=== PATIENT | female | born 1965 | race Caucasian/White ===

== ENCOUNTER → 2019-07-07 08:31 | Outpatient (CLI) | payer BC, SELFPAY ==
--- NOTE | 2019-07-07 08:33 | BI_ITS ---
MAMMOGRAPHY - BILATERAL SCREENING REASON FOR EXAM: Female, 54 years old. Routine annual screening examination. PERTINENT HISTORY: Aunt with breast cancer. TECHNIQUE: Digital bilateral breast brent (3D mammographic acquisition) in the CC and MLO projections. 2-D mediolateral oblique (MLO) and craniocaudad (CC) views of both breasts were obtained. CAD: Full Field Digital Mammography with Computer Added Detection was performed. COMPARISON: Comparison is made with prior examination dated September 26, 2014. FINDINGS: Breast Composition: The breasts are heterogeneously dense, which may obscure small masses. There are no dominant masses or suspicious calcifications. Stable appearance of the small bilateral axillary lymph nodes. No other significant abnormalities are identified. There has been no significant change since the prior study. BI/SCREEN MAMM (CAD) W/BRENT BILAT IMPRESSION: Stable bilateral screening mammogram. Yearly follow-up mammogram recommended. (A) ASSESSMENT CATEGORY: BIRADS Category 2: Benign. A letter regarding these results will be sent to the patient by the facility within 30 days. Approximately 10% of breast cancers are not detected by mammography. A normal mammogram should not delay biopsy of a clinically suspicious abnormality. [id number] Electronically Signed: Jonnathan Harris, at 9:39 EDT , Service support ,
== END ==
PROVIDERS: Family Provider Internal Medicine; PCP Internal Medicine; Referring Provider Internal Medicine; Visit Provider Internal Medicine
DX: Z12.31 Encounter for screening mammogram for malignant neoplasm of breast (principal)
CPT/HCPCS: 77063; 77067

== ENCOUNTER → 2019-07-25 15:54 | Outpatient (CLI) | payer BC, SELFPAY | PROVIDERS: Visit Provider Obstetrics & Gynecology | DX: Z12.4 Encounter for screening for malignant neoplasm of cervix (principal) ==

== ENCOUNTER → 2020-03-29 | Outpatient (CLI) | payer BC, SELFPAY ==
--- NOTE | 2020-03-29 13:45 | EMB_PTH ---
PATIENT: BENIGNO CORNEJO LOC: [facility] U#:[id number] AGE/SX: 54/F ROOM: RE03/29/[address]: Dr. Eliot Thompson MD : 1965 BED: DIS: 03/29/2020 SPEC #: [id number] RECD: 03/29/20 15:06 STATUS: NATALY CHRISTIENabor #: [id number] ROXANA: 03/29/20 13:[address]: Eliot Thompson DEPT: SURGICAL PATHOLOGY RECD BY: Collins Rosario Tissues: Endometrium, NOS Procedures: Surgery Specimen Level IV HEADER OPERATION: Endometrial biopsy PRE-OP DIAGNOSIS: N93.9 TISSUE SUBMITTED: Endometrial biopsy MICROSCOPIC DIAGNOSIS Endometrium, biopsy: Simple hyperplasia without atypia. AM:jerry 04/03/20 COMMENT Case has been reviewed in consultation with Dr. Coates who concurs with the above diagnosis. IDC:SJ MICROSCOPIC DESCRIPTION Slides are reviewed. GROSS DESCRIPTION Received in fixative is one container labeled with the patient's name and designated endometrial biopsy. The specimen consists of multiple irregular fragments of dark espino soft tissue that in aggregate measure 2.5 x 2 x 0.2 cm. The specimen is totally submitted in one cassette. / AM:jerry 04/02/20 TC:5 CPT: 05159
[2020-03-29 16:23] LABS: Hemoglobin 7.1 g/dL (12.0-15.0)
[2020-04-02 14:07] LABS: Free T3 0.8 pg/mL (2.18-3.98); T4 Free Direct 0.23 ng/dL (0.76-1.46)
== END | disposition home or self-care (01) ==
PROVIDERS: Visit Provider Obstetrics & Gynecology
DX: N93.9 Abnormal uterine and vaginal bleeding, unspecified (principal); R94.6 Abnormal results of thyroid function studies
CPT/HCPCS: 84439; 84443; 84481; 85014; 85018; 88305

== ENCOUNTER 2020-05-20 05:35 | Day surgery (SDC) | payer BC, SELFPAY ==
--- NOTE | 2020-05-15 10:55 | EKG12_ITS ---
Test Reason : PRE-OP Blood Pressure : / mmHG Vent. Rate : 062 BPM Atrial Rate : 062 BPM P-R Int : 138 ms QRS Dur : 092 ms QT Int : 380 ms P-R-T Axes : 022 049 042 degrees QTc Int : 385 ms Sinus rhythm with marked sinus arrhythmia Otherwise normal ECG Confirmed by GOMEZ RUIZ ([id number]), restaurant expeditor GAVIOTA PINK ([id number]) on 05/16/2020 1:08:58 PM Referred By: Eilot Thompson Confirmed By:GOMEZ RUIZ
[2020-05-15 11:58] LABS: Hematocrit 38.5 % (37-47); Hemoglobin 11.3 g/dL (12.0-15.0); Mean Corp Hgb Conc 29.4 g/dL (32-36); Mean Corpuscular Hgb 27.5 pg (27.0-32.0); Mean Corpuscular Volume 93.7 fL (81-99); Mean Platelet Vol. 11.7 fl (6.2-12.0); POSITIVE MORPHOLOGY YES; Platelet Count 361 K/mm3 (150-450); RBC Distribution Width CV 20.3 % (11.6-14.6); RBC Distribution Width SD 68.6 fl (35.1-43.9); Red Blood Count 4.11 M/mm3 (4.2-5.4); White Blood Count 5.4 K/mm3 (4.4-11.0)
[2020-05-15 12:05] LABS: Partial Thromboplast Time 27.4 Seconds (24.1-36.2); Prothrombin Time (Protime)PT. 12.4 SECONDS (11.7-14.9)
[2020-05-15 12:26] LABS: AST(SGOT) 26 U/L (15-37); Alanine Aminotransfer ALT/SGPT 33 U/L (13-56); Albumin, Serum 3.9 g/dL (3.2-5.0); Alkaline Phosphatase 23 U/L (45-117); Anion Gap 6 (5-15); BUN 11 mg/dL (7-18); BUN/Creat Ratio 10.9 RATIO (10-20); Calcium,Total 8.6 mg/dL (8.5-10.1); Chloride 107 mmol/L (98-107); Creatinine, Serum 1.01 mg/dL (0.55-1.02); EST Glomerular Filtration Rate 61 mL/min (>60); Est Glom Filt Rate - Afr Amer 74 mL/min (>60); Globulin 3.8 g/dL (2.2-4.2); Glucose 82 mg/dL (74-106); Potassium 4.3 mmol/L (3.5-5.1); Protein, Total 7.7 g/dL (6.4-8.2); Sodium Level 138 mmol/L (136-145); Thyroid Stim Hormone (TSH) 0.27 uIU/mL (0.358-3.74)
[2020-05-15 12:34] LABS: Scan Indicated on CBC? Y/N YES- FLAGS NOTED
[2020-05-15 12:35] LABS: Differential Comment SCANNED
--- NOTE | 2020-05-19 21:25 | HP.PCM_ITS ---
History and Physical Date of Admission: 05/20/20 Surgical History and Physical Jackie Royal, a 54 year old female 3 0 0 0 3, presents for RAVH/BSO on May 20, 2020 at 7:30. -- Menorrhagia; Submucous Fibroids; Blood Loss Anemia -- Pt has heavy bleeding and clotting. Pt states she skips 2-3 months and then will have a heavy bleeding. She will go through a large pad about every 2 hours. Heavy menses claims it started gradually; It occurs all the time. It is located in the vagina. Jackie characterizes the quality heavy. Associated signs and symptoms are dysmenorrhea. Additional comments are: u/s shows submucous fibroids and thickened endometrium; EMBx benign but showed simple hyperplasia. MEDICATIONS HISTORY: Current medications prescribed by our practice are: 1. Aygestin 5 mg tablet, 2 tabs by mouth every 2 hrs until bleeding stops, no more than 12 in 24 hours, then 2 tabs 3 x per day x 3 days, then 2 tabs 2 x per day x 3 days Patient is also takin. Synthroid 150 mcg tablet, One pill by mouth once a day ALLERGIES: NKA Infections - No Chicken pox Illnesses - hypothyroid Accidents - no injuries of consequence Hospitalizations - Childbirth colonscopy 2019; Review of Systems: GENERAL - Denies fever, or chills SKIN - Denies skin changes EYES - Denies visual changes EARS - Denies difficulty hearing NOSE - Denies nasal congestion or bleeding MOUTH - Denies sore throat or difficulty swallowing NECK - Denies pain or swelling RESPIRATORY - Denies shortness of breath or wheezing CARDIOVASCULAR - Denies palpitations or chest pain GASTROINTESTINAL - Denies nausea, vomiting, diarrhea, constipation GENITOURINARY - Denies dysuria, frequency of urination, incontinence of urine MUSCULOSKELETAL - Denies joint or muscle pain NEUROLOGICAL - Denies localized numbness or weakness PSYCHIATRIC - Denies depression or anxiety ENDOCRINE - Denies heat or cold intolerance, weight loss or gain HEMATO-IMMUNOLOGIC - Denies excesive bleeding with cuts SOCIAL HISTORY: Alcohol Use - socially Smoking - denies smoking Diet - balanced Diet Lifestyle - moderate stress lifestyle and Exercise - regular Seat Belt Use - always 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 Mother: Uterine cancer. Maternal Aunt: Breast cancer. MENSTRUAL HISTORY: LMP Known?- DefiniteAmount/Duration - 7 days, Regularity - Irregular, Frequency - variable days, LMP - 05/13/20, Age Onset Menarche - 13 PAST PREGNANCIES: Total Pregnancies - 3; Full Term Pregnancies - 3; Premature - 0; Abortions, Induced - 0; Abortions, Spontaneous - 0; Ectopics - 0; Multiple Births - 0; Living Children - 3 SURGICAL HISTORY: 1. varicose veins ' 04 ; Dr Lyons 2. colonoscopy 2019 PHYSICAL EXAM BP- 126/82 Sitting, Right arm, regular cuff Weight- 195 lbs Height- 66.5 inch BMI:31.07 CONSTITUTIONAL - NAD, well nourished, and well developed NEUROLOGICAL - Cranial nerves II-XII grossly intact PSYCHIATRIC - A and O to time, place, person, mood and affect External Genitial Vagina - non-tender without lesions Urethra/Urethral Meatus - non-tender Bladder - non-tender Vagina - vaginal landry are pink and moist without loss of rugae and no evidence of atropy and blood in vagina Cervix - without cervical motion tenderness and has normal size and features without evident lesions and high in vagina which would make LAVH technically difficult Uterus - multiparous size 6 cm & wt 75-125 g Adnexa - clear without massess or tenderness ASSESSMENT/PLAN: 1. Iron Deficiency Anemia Secondary To Blood Loss (chronic), Premenopause Menorrhagia, Submucous Leiomyoma and Simple Endometrial Hyperplasia Discussed options for treatment including medical versus surgical management. Given that medical management and minor surgical management such as D and C will likely not help sufficiently with this problem pt wants to proceed with hysterectomy. Plan to proceed with RAVH/BSO. Discussed RBAs and all questions answered.
[2020-05-20] VITALS (11 sets, daily range): BP systolic 103–126; BP diastolic 50–74; PULSE 60–83; RESP 12–18; TEMP 35.9–36.8; O2SAT 91–100; BMI 31.2
[2020-05-20 06:24] LABS: Internal QC Validated? YES +Cl - CLEAR BKGD; Pregnancy, Urine Negative Negative
[2020-05-20] MEDS: Lactated Ringers 1,000 ML 100 ML IV ×2 (06:35→06:45)
--- NOTE | 2020-05-20 07:30 | HYST_PTH ---
PATIENT: BENIGNO CORNEJO LOC: [facility] [place] U#:[id number] AGE/SX: 54/F ROOM: RE05/20/[address]: Dr. Eliot Thompson MD : 1965 BED: DIS: 05/21/2020 SPEC #: [id number] RECD: 05/20/20 10:21 STATUS: NATALY CHRISTIENabor #: [id number] ROXANA: 05/20/20 07:[address]: Eliot Thompson DEPT: SURGICAL PATHOLOGY RECD BY: Aminata Alonzo ENTERED: 05/20/20 10:38 SP TYPE: HYSTERECT OTHR DR: Dr. Bianca Rivera, DO Tissues: Uterus, NOS Procedures: Surgery Specimen Level V HEADER OPERATION: Lap robotic hysterectomy, BSO PRE-OP DIAGNOSIS: Iron deficiency anemia secondary to blood loss, premenopause menorrhagia, submucous leiomyoma, simple endometrial hyperplasia TISSUE SUBMITTED: Uterus, cervix, bilateral fallopian tubes and ovaries MICROSCOPIC DIAGNOSIS Uterus, hysterectomy: Cervix - nabothian cysts and mild chronic inflammation. Endometrium - transition endometrium. Myometrium - leiomyomas and adenomyosis. Right and left ovaries - involutional cysts. Right and left fallopian tubes - no pathologic change. AM:jerry 05/21/20 MICROSCOPIC DESCRIPTION Slides are reviewed. GROSS DESCRIPTION Received in fixative is one container labeled with the patient's name and designated uterus. The specimen consists of a uterus with attached right and left fallopian tubes and ovaries and attached cervix. The uterus with cervix measures 8 x 7 x 5.5 cm and weighs 170 gm. The ectocervix is grossly unremarkable. The endocervical canal measures 3.8 cm in length and is grossly unremarkable. The triangular endometrial cavity measures 4.5 x 4 cm. The endometrium is light espino, velvety and glistening and measures up to 0.2 cm in thickness. The myometrium measures 2.5 cm in average thickness and contains multiple spherical rubbery nodules ranging in size from 0.5 to 2 cm. The nodules and cut surfaces display a whorled appearance without areas of cyst formation, necrosis or hemorrhage. The right and left ovaries are pink-espino, smooth and glistening with crinkled external surfaces. The right ovary measures 2.5 x 1.5 x 1 cm. The left ovary measures 2.6 x 1.5 x 1 cm. Serial sections of the ovaries do not reveal mass lessons. Mva Reactor Operator Head sections are submitted in 11 cassettes as follows: 1 - anterior cervix, 2 - posterior cervix, 3 - anterior endometrium/myometrium, 4 & 5 - remainder of anterior endometrium, 6 - posterior endometrium/myometrium, 7 & 8 - remainder of posterior endometrium, 9??myometrial masses, 10 - right fallopian tube and ovary, 11 - left fallopian tube and ovary. / AM:jerry 05/20/20 TC:1 CPT: 22882
--- NOTE | 2020-05-20 07:40 | OP.PCM_ITS ---
Report of Operation Date of Procedure: 05/20/20 Pre-Operative Diagnosis: Menorrhagia; Submucous Fibroids; Blood Loss Anemia, Simple Endometrial Hyperplasia Post-Operative Diagnosis: Menorrhagia; Submucous Fibroids; Blood Loss Anemia, Simple Endometrial Hyperplasia Surgery/Procedure Performed:: Robotic Assisted Vaginal Hysterectomy and Bilateral Salpingo-Oophorectomy Description of Surgical Findings:: 12 cm uterus with normal-appearing fallopian tubes and ovaries. carpet inspector: Vamshi Turner Type of Anesthesia:: General - Endotracheal Anesthesiologist: Reno Arevalo Specimen's removed: Uterus and bilateral fallopian tubes and ovaries Drains: Crystal to straight drain Estimated Blood Loss (mL): Minimal Fluids Replaced: Crystalloid Description of Procedure: Surgeon: Eliot Thompson MD, FACOG Indication: This is a 54 year old patient who has been having problems with menorrhagia, submucous fibroids, blood loss anemia, and simple endometrial hyperplasia. Conservative measures have not been helpful. The patient has been counseled regarding the risks, benefits and alternatives of this procedure including the possibility of bleeding, infection, and injury to surrounding structures such as bowel bladder and all questions were answered. She understands that if BSO is done that she will need to be on HRT for an indefinite period of time. Procedure: Pt taken to the operating room where, after induction of general anesthesia, the patient was prepped and draped in the usual sterile fashion and placed on a non-slip Huggy-u-vac device. Trendelenburg test was satisfactory. Bladder was drained of urine with a Crystla catheter which was left in place. Anterior cervix grasped and cervix was dilated to about 3-4 mm. Uterus sounded to 11 cms. 0-Vicryl suture was placed at the 3:00 and 9:00 position of the cervix. A small Advincula Morgue Technician Uterine Manipulator was then placed in the uterus and attention was turned to the laparoscopic portion of the procedure. Ropivocaine 0.5% was injected approximately 2-3 cm superior to the umbilicus and an 8 mm robotic camera port was introduced directly with intraperitoneal placement confirmed with CO2 insufflation. 8 mm robotic side ports were introduced under direct visualization approximately 11 cm lateral and 2 cm inferior to the umbilical port. A 5 mm left upper quadrant port was introduced and airseal insufflation with CO2 was started. The above findings were noted. Robot was docked without difficulty and attention turned to the robotic portion of the procedure. Approximately 30 cc of Ropivicaine was used. Bilateral infundibulopelvic ligaments were ligated with 45 ramsey bipolar coagulation to the level of the round ligament. The posterior aspect of the cervix was identified and then opened for about 1 cm using 25 watt monopolar cautery identifying the uterine manipulating device which had been placed vaginally. Bladder flap was opened and divided to the level of the round ligaments using monopolar cautery. Progressive bites were then ligated on each side of the cervix with 35 ramsey bipolar cautery to the uterine arteries. The anterior vaginal mucosa was entered and cervix circumscribed with monopolar cautery. Uterus and attached tubes and ovaries were removed through the vagina. Vaginal cuff was closed first with 0-Vicryl Beverly stitches placed at each angle followed by closure of the mid-cuff with 0-Monocryl V-lock suture in two layers. Pelvis was copiously irrigated with saline and the right ureter was noted to peristalse. Robot was undocked and trocars were removed with as much gas as possible. Incisions were closed with 4-0 Monocryl subcuticular sutures and incisions covered with steri-strips. The patient tolerated the procedure well and was taken to the recovery room in satisfactory condition. Sponge, instruments and needle counts were all correct. There were no apparent complications of the surgery. Cefotan 2 gms IV was given prior to the procedure. Grafts/Implants Used: None - Complications None - Admit VTE Documentation VTE Present on Admission: Yes VTE Mechan Device Prophylaxis: SCD's VTE Pharm Prophylaxis ordered?: Yes
--- NOTE | 2020-05-20 07:43 | DCINST_ITS ---
Discharge Diet: No Restrictions Discharge Activity: Return to Normal Activity, May Not Drive - while taking narcotic pain medications., May Shower May resume sexual activity in: 6-8 weeks Call your doctor if your incision/area has: Continuous Slow Oozing, Sudden Increased Bleeding, Increased Pain/ Swelling, Increased Redness, Foul Smelling Discharge Call your doctor if you observe: Fever of 101 or Higher, Inability to urinate, Inability to have a bowel movement, Using more than one pad per hour Allergies/Adverse Reactions: Allergies No Known Allergies Allergy (Verified 05/20/20 06:23) Medications to take at Discharge Black Cohosh Root [Black Cohosh] 200 mg PO DAILY 05/13/20 Ferrous Sulfate 325 mg PO DAILY@0800 05/13/20 Levothyroxine [Synthroid] 150 mcg PO DAILY 05/13/20 Magnesium Oxide [Magnesium] 800 mg PO DAILY 05/13/20 Multivitamin [Multiple Vitamins] 1 ea PO DAILY 05/13/20 Docusate Sodium [Colace] 100 mg PO BID PRN PRN #60 cap 05/20/20 Oxycodone [Oxyir] 5 mg PO Q6H PRN PRN 7 Days #20 tablet 05/20/20 The following prescriptions were given: Docusate Sodium [Colace] 100 mg PO BID PRN PRN #60 cap PRN Reason: Constipation Transmission Status: Pending to [facility] Oxycodone [Oxyir] 5 mg PO Q6H PRN PRN 7 Days #20 tablet PRN Reason: Pain Score 6-10/10 Transmission Status: Sent to [facility] Primary Care Physician: Bianca Rviera DO [Primary Care Provider] - Test Results: Test results from this visit will be discussed in further detail at your follow- up appointment, if applicable. Please Follow Up With: Eliot Thompson MD When: 2 to 3 weeks
[2020-05-20] MEDS: Ropivacaine 0.5% 30 ML Vial (09:35)
[2020-05-20] MEDS: 0.9% Saline Lock 10 ML Syringe IV ×2 (10:36→21:21)
[2020-05-20] MEDS: Ketorolac 30 MG/ML Syringe IV ×2 (15:20→21:17)
[2020-05-20] MEDS: Dextrose 5%-Lactated Ringers 1,000 ML 150 ML IV ×2 (15:22→22:39)
[2020-05-20] MEDS: Enoxaparin 30 MG/0.3 ML Syringe SC (17:51)
[2020-05-21 01:07] VITALS: BP 120/62; PULSE 75; RESP 16; TEMP 37.1; O2SAT 97
[2020-05-21] MEDS: oxyCODONE 5 MG Tablet PO (02:41)
[2020-05-21] MEDS: Ketorolac 30 MG/ML Syringe IV ×2 (02:42→09:33)
[2020-05-21] MEDS: 0.9% Saline Lock 10 ML Syringe IV ×3 (02:43→09:32)
[2020-05-21 02:49] VITALS: BP 136/80; PULSE 71; RESP 16; TEMP 36.8; O2SAT 99
--- NOTE | 2020-05-21 05:21 | PCM.PN.OB ---
Subjective: Patient without complaints. Tolerating diet well. Minimal vaginal bleeding. Minimal abdominal pain. Objective: Wounds are clean, dry, intact. Good urine output. Hemoglobin and creatinine pending. - Physical Exam Vitals/I&O's: Vital Signs Temp Pulse Resp BP Pulse Ox 98.3 F 71 16 136/80 H 99 05/21/20 02:49 05/21/20 02:49 05/21/20 02:49 05/21/20 02:49 05/21/20 02:49 Oxygen Flow Rate (L/min) 2 Oxygen Delivery Method Room Air Weight: 193 lb 9.054 oz Body Mass Index (BMI) 31.2 Intake and Output for Last 24 Hours 05/19/20 05/20/20 05/21/20 23:59 23:59 23:59 Intake Total 4850 / 5350 500 / 500 Output Total 1075 / 2275 1200 / 1200 Balance 3775 / 3075 -700 / -700 Laboratory Results 05/20/20 06:15: Urine Test Negative Current Medications Acetaminophen (Tylenol) 1,000 mg PO Q8H PRN PRN PRN Reason: Pain Score 1-3/10 or Fever Docusate Sodium (Colace) 100 mg PO BID PRN PRN PRN Reason: CONSTIPATION Estrogens Conjugated (Premarin) 0.625 mg PO DAILY [facility] Hydromorphone HCl (Dilaudid Inj) 0.5 mg IV Q3H PRN PRN PRN Reason: Pain Score 4-10/10 Dextrose/Lactated Ringer's () 1,000 mls @ 150 mls/hr IV .Q6H40M [facility] Last Admin: 05/20/20 22:39 Dose: 150 mls/hr Documented by: Sodium Chloride () 250 mls @ 15 mls/hr IV .[id number] PRN PRN Reason: Saline Flush Ketorolac Tromethamine (Toradol (Bkc)) 30 mg IV Q6H [facility] Stop: 05/25/20 15:31 Last Admin: 05/21/20 02:42 Dose: 30 mg Documented by: Levothyroxine Sodium (Synthroid) 150 mcg PO DAILY@0600 [facility] Ondansetron HCl (Zofran) 4 mg IV Q4H PRN PRN PRN Reason: NAUSEA Oxycodone HCl (Oxyir) 5 mg PO Q4H PRN PRN PRN Reason: Pain Score 4-10/10 Last Admin: 05/21/20 02:41 Dose: 5 mg Documented by: Simethicone (Mylicon) 80 mg PO [facility] SKIP Last Admin: 05/20/20 21:17 Dose: 80 mg Documented by: Sodium Chloride () 10 - 40 ml IV UD PRN PRN Reason: SALINE FLUSH Last Admin: 05/21/20 02:43 Dose: 10 ml Documented by: Medical Necessity - Tobacco Use Smoking Status: Never smoker Tobacco Use: Non-smoker Assessment/Plan Doing well postoperative day #1 status post robotic assisted vaginal hysterectomy and bilateral salpingo-oophorectomy. Will discharge to home with routine instructions. Discussed starting hormone replacement therapy and patient desires to wait and see if she has hot flashes that develop. If she does she will call for a prescription.
[2020-05-21] MEDS: Levothyroxine 150 MCG Tablet PO (05:29)
--- NOTE | 2020-05-21 05:51 | NURSING ---
Pt ambulated in hallway with RN. Tolerated well.
[2020-05-21 06:03] LABS: Hematocrit 34.3 % (37-47); Hemoglobin 10.5 g/dL (12.0-15.0); Mean Corp Hgb Conc 30.6 g/dL (32-36); Mean Corpuscular Hgb 28.4 pg (27.0-32.0); Mean Corpuscular Volume 92.7 fL (81-99); POSITIVE MORPHOLOGY YES; Platelet Count 217 K/mm3 (150-450); RBC Distribution Width CV 19.8 % (11.6-14.6); RBC Distribution Width SD 66.8 fl (35.1-43.9); White Blood Count 7.2 K/mm3 (4.4-11.0)
[2020-05-21 06:15] LABS: Scan Indicated on CBC? Y/N YES- FLAGS NOTED
[2020-05-21 06:31] LABS: Differential Comment SCANNED
[2020-05-21 06:35] LABS: Creatinine, Serum 1.01 mg/dL (0.55-1.02); EST Glomerular Filtration Rate 61 mL/min (>60); Est Glom Filt Rate - Afr Amer 74 mL/min (>60)
[2020-05-21 08:45] VITALS: BP 112/77; PULSE 88; RESP 16; TEMP 36.7; O2SAT 98
[2020-05-21 09:35] VITALS: O2SAT 98
[2020-05-21] MEDS: Estrogens,Conj. 0.625 MG Tablet PO (09:35)
[2020-05-21 10:49] VITALS: BP 122/80; PULSE 68; RESP 18; TEMP 36.8; O2SAT 99
== END 2020-05-21 11:00 | disposition home or self-care (01) ==
LOC: SDC 05:36 → AC 05:36 → MS3 09:12
PROVIDERS: Anesthesiology; PCP Internal Medicine; Referring Provider Obstetrics & Gynecology; Visit Provider Obstetrics & Gynecology
PROC: 0UT94ZZ Resection of Uterus, Percutaneous Endoscopic Approach (ICD-10-PCS; CPT 58552; principal; 2020-05-20 07:10)
DX: N92.4 Excessive bleeding in the premenopausal period (principal); D50.0 Iron deficiency anemia secondary to blood loss (chronic); D25.0 Submucous leiomyoma of uterus; N85.01 Benign endometrial hyperplasia; Z11.59 Encounter for screening for other viral diseases; E03.9 Hypothyroidism, unspecified
CPT/HCPCS: 00840; 58552; S2900; 36415; 80053; 81025; 82565; 83001; 84443; 85027; 85610; 85730; 86850; 86900; 86901; 87635; 88307; 93005; 99251; G2023; J7120; A4216; G0463; J2405; U0003

== ENCOUNTER → 2022-07-16 | Outpatient (CLI) | payer BC, SELFPAY ==
--- NOTE | 2022-07-16 10:25 | BI_ITS ---
MAMMOGRAPHY - BILATERAL SCREENING REASON FOR EXAM: Female, 57 years old. Routine annual screening examination. PERTINENT HISTORY: Aunt with breast cancer. TECHNIQUE: Digital bilateral breast brent (3D mammographic acquisition) in the CC and MLO projections. 2-D mediolateral oblique (MLO) and craniocaudad (CC) views of both breasts were obtained. CAD: Full Field Digital Mammography with Computer Added Detection was performed. COMPARISON: Comparison is made with prior study dated 07/07/2019 and 09/26/2014. FINDINGS: Breast Composition: The breasts are heterogeneously dense, which may obscure small masses. There are no dominant masses or suspicious calcifications. Stable small benign-appearing bilateral axillary lymph nodes. No other significant abnormalities are identified. There has been no significant change since the prior study. BI/SCRN MAMM (CAD)W/BRENT BILAT IMPRESSION: Stable bilateral screening mammogram. Yearly follow-up mammogram recommended. (A) ASSESSMENT CATEGORY: BIRADS Category 2: Benign. A letter regarding these results will be sent to the patient by the facility within 30 days. Approximately 10% of breast cancers are not detected by mammography. A normal mammogram should not delay biopsy of a clinically suspicious abnormality. [id number] Electronically Signed: Jonnathan Harris MD at 12:31 EDT ,
--- NOTE | 2022-07-16 10:28 | BD_ITS ---
STUDY: DUAL ENERGY X-RAY ABSORPTIOMETRY / DXA REASON FOR EXAM: Female, 57 years old. Z780. TECHNIQUE: Bone Mineral Density (BMD) measurements of lumbar spine and bilateral hips were obtained. COMPARISON: None. FINDINGS: Lumbar Spine (L1-L4): g/cm2 (1.204) / T-score (1.4) / Z-score (2.6) Findings are suggestive of normal bone density with a low fracture risk. Left Femur Total: g/cm2 (0.999) / T-score (0.5) / Z-score (1.2) Left Femoral Neck: g/cm2 (0.916) / T-score (0.6) / Z-score (1.7) Right Femur Total: g/cm2 (1.039) / T-score (0.8) / Z-score (1.5) Right Femoral Neck: g/cm2 (0.918) / T-score (0.6) / Z-score (1.7) BD/Dexa Bone Density Study IMPRESSION: The patient is considered normal as outlined below according to World Luis Felipe Organization (WHO) criteria with a low fracture risk. Reference Information: The T-score is the number of standard deviations above or below the standard which is normal for young adults at their peak bone mineral density. The World Health Organization (WHO) interprets the T-scores as follows: Above -1 Normal bone density Between -1 and -2.5 Osteopenia Equal to / or below -2.5 Osteoporosis As a practical clinical guideline, osteopenia may be graded as follows: Mild -1 through -1.5 Moderate -1.6 through -2.0 Severe -2.1 through -2.4 The Z-score is the number of standard deviations above or below age-matched controls. A Z-score of less than -1.5 would be considered abnormal. References: 1. NIH Osteoporosis and Related Bone Diseases www osteo.org 2. International Society for Clinical Densitometry www iscd.org 3. National Osteoporosis Foundation www nof.org Electronically Signed: Jonnathan Harris MD at 10:29 EDT ,
== END | disposition home or self-care (01) ==
LOC: OPBD 10:23
PROVIDERS: PCP Internal Medicine; Visit Provider Internal Medicine
DX: Z12.31 Encounter for screening mammogram for malignant neoplasm of breast (principal); M85.80 Other specified disorders of bone density and structure, unspecified site; E89.40 Asymptomatic postprocedural ovarian failure
CPT/HCPCS: 77063; 77067; 77080

== ENCOUNTER → 2024-04-05 | Outpatient (CLI) | payer BC, SELFPAY ==
--- NOTE | 2024-04-05 11:53 | BI_ITS ---
MAMMOGRAPHY - BILATERAL SCREENING REASON FOR EXAM: Female, 58 years old. Routine annual screening examination. PERTINENT HISTORY: Aunt with breast cancer. TECHNIQUE: Digital bilateral breast brent (3D mammographic acquisition) in the CC and MLO projections. 2-D mediolateral oblique (MLO) and craniocaudad (CC) views of both breasts were obtained. CAD: Full Field Digital Mammography with Computer Added Detection was performed. COMPARISON: Comparison is made with prior study July 16, 2022 and July 07, 2019. FINDINGS: Breast Composition: The breasts are heterogeneously dense, which may obscure small masses. There are no dominant masses or suspicious calcifications. Stable appearance of the bilateral axillary lymph nodes. No other significant abnormalities are identified. There has been no significant change since the prior study. BI/SCRN MAMM (CAD)W/BRENT BILAT IMPRESSION: Stable bilateral screening mammogram. Yearly follow-up mammogram recommended. (A) ASSESSMENT CATEGORY: BIRADS Category 2: Benign. A letter regarding these results will be sent to the patient by the facility within 30 days. Approximately 10% of breast cancers are not detected by mammography. A normal mammogram should not delay biopsy of a clinically suspicious abnormality. [id number] Electronically Signed: Jonnathan Harris MD at 13:29 EDT ,
== END | disposition home or self-care (01) ==
LOC: OPBI 11:51
PROVIDERS: PCP Internal Medicine; Referring Provider Nurse Practitioner Family; Visit Provider Nurse Practitioner Family
DX: Z12.31 Encounter for screening mammogram for malignant neoplasm of breast (principal)
CPT/HCPCS: 77063; 77067

== ENCOUNTER → 2025-07-12 | Outpatient (CLI) | payer OTHER, SELFPAY ==
--- NOTE | 2025-07-12 14:20 | BI_ITS ---
EXAM: SCRN MAMM (CAD)W/BRENT BILAT DATE: 07/12/2025 CLINICAL HISTORY: F, Age 60 y/o , SCREENING Aunt with breast cancer. TECHNIQUE: Procedure Code: [id number] Modality: MG Procedure: SCRN MAMM (CAD)W/BRENT BILAT COMPARISON: Prior exam(s) dated April 05, 2024.. FINDINGS: TISSUE DENSITY: The breasts are heterogeneously dense, which may obscure small masses. Bilateral Breast Mammographic Findings: No significant masses, calcifications or other abnormalities are identified. Stable small benign-appearing bilateral axillary lymph nodes. No suspicious masses, areas of developing architectural distortion, or suspicious calcifications. There has been no significant interval change. BI/SCRN MAMM (CAD)W/BRENT BILAT IMPRESSION: Stable screening mammogram. OVERALL FINAL ASSESSMENT BI-RADS 2: BENIGN RECOMMENDATION: Routine annual follow-up in 1 Year A letter with findings and recommendations will be mailed to the patient. Reading [id number]
== END | disposition home or self-care (01) ==
PROVIDERS: PCP Nurse Practitioner Family; Referring Provider Nurse Practitioner Family; Visit Provider Nurse Practitioner Family
DX: Z12.31 Encounter for screening mammogram for malignant neoplasm of breast (principal)
CPT/HCPCS: 77063; 77067